=== PATIENT | male | born 1995 | race Asian ===

== ENCOUNTER 2017-12-10 04:50 | Emergency (ER) | payer OTHER ==
[~2017-12-10] VITALS: Ht 175.3 cm; Wt 84.1 kg
[2017-12-10] MEDS ORDERED: LORazepam 1 MG TABLET PO ONE (05:15)
[2017-12-10 05:51] VITALS: BP 143/85
== END 2017-12-10 06:19 | disposition home or self-care (01) ==
LOC: EMS 04:52
DX: R07.9 Chest pain, unspecified (principal); F17.200 Nicotine dependence, unspecified, uncomplicated
CPT/HCPCS: 93005; 99283